=== PATIENT | female | born 1980 | race Caucasian/White ===

== ENCOUNTER → 2018-03-14 | Outpatient (REF) | payer OTHER, MEDICAID ==
[2018-03-14 20:12] LABS: CHOLESTEROL LEVEL 128 MG/DL (<200); CHOLESTEROL RISK RATIO 3.121 (<5); HDL CHOLESTEROL 41 MG/DL (>40); LDL CHOLESTEROL 76.6 MG/DL (<100); NON-HDL-C 87 MG/DL; TRIGLYCERIDES LEVEL 52 MG/DL (<150)
[2018-03-15 10:25] LABS: RUBELLA IgG QUALITATIVE IMMUNE (IMMUNE)
[2018-03-16 08:11] LABS: RUBEOLA IgG ANTIBODY 68.1 AU/mL (Immune >29.9)
[2018-03-16 08:11] LABS: MUMPS VIRUS IgG ANTIBODY <9.0 AU/mL (Immune >10.9)
== END ==
LOC: M LAB REF 19:20
DX: Z02.1 Encounter for pre-employment examination (principal); Z13.220 Encounter for screening for lipoid disorders
CPT/HCPCS: 86762

== ENCOUNTER → 2018-05-29 | Outpatient (REF) | payer OTHER, MEDICAID ==
[2018-06-01 14:40] LABS: HPV HYBRID CAPTURE II Negative (Negative)
== END ==
LOC: M SFHCWAGY 13:27
DX: Z01.419 Encounter for gynecological examination (general) (routine) without abnormal findings (principal); Z11.51 Encounter for screening for human papillomavirus (HPV)
CPT/HCPCS: 88142

== ENCOUNTER 2019-12-06 18:04 | Emergency (ER) | payer MEDICAID, OTHER ==
[~2019-12-06] VITALS: Ht 162.6 cm; Wt 64.2 kg
[~2019-12-06 18:04] MED LIST: MAPA500T17 PO; PRENTAB66 PO
[2019-12-06] MEDS ORDERED: IPRATROPIUM 0.5MG/ALBUTEROL 2.5MG INH SOL UD 3ML (DUONEB)(J7620) NEB ONE (20:15)
[2019-12-06 20:27] LABS: BASO # 0.1 10^3/uL (0.0-0.2); BASO % 1.2 % (0.0-1.0); EOS # 0.5 10^3/uL (0.0-0.5); EOS % 4.8 % (0.0-3.0); HEMATOCRIT 37.4 % (36.0-47.0); HEMOGLOBIN 12.3 g/dl (12.0-15.5); LYMPH # 3.5 10^3/uL (1.5-5.0); LYMPH % 34.4 % (24.0-44.0); MEAN CORPUSCULAR HEMOGLOBIN 30.5 pg (27.0-33.0); MEAN CORPUSCULAR HGB CONC 32.9 g/dl (32.0-36.5); MEAN CORPUSCULAR VOLUME 92.8 fl (80.0-96.0); MONO # 0.8 10^3/uL (0.0-0.8); MONO % 8.1 % (0.0-5.0); NEUTROPHILS # 5.1 10^3/uL (1.5-8.5); NEUTROPHILS % 51.2 % (36.0-66.0); PLATELET COUNT, AUTOMATED 363 10^3/uL (150-450); RED BLOOD COUNT 4.03 10^6/uL (4.00-5.40)
[2019-12-06] MEDS ORDERED: PROAAER10 INH (21:12)
[2019-12-06] MEDS ORDERED: ALBUTEROL 90 MCG/ACT 8GM HFA INHALER INH ONE (21:15)
[2019-12-06 21:17] VITALS: BP 134/71
--- NOTE | 2019-12-07 01:21 | REP ---
Clinical: Cough and dyspnea . Comparison: None . Technique: PA and lateral. Findings: The mediastinum and cardiac silhouette are normal. The lung graf are clear and without acute consolidation, effusion, or pneumothorax. The skeletal structures are intact and normal. Impression: 1. No acute cardiopulmonary process. Electronically Signed by Mario Miller MD 12/07/2019 01:13 A
== END 2019-12-06 21:24 | disposition home or self-care (01) ==
LOC: M ED 18:04
DX: R06.89 Other abnormalities of breathing (principal); R05 Cough; R20.0 Anesthesia of skin; F17.210 Nicotine dependence, cigarettes, uncomplicated

== ENCOUNTER → 2020-01-03 | Outpatient (REF) | payer OTHER, MEDICAID ==
[~2020-01-03] MED LIST changes: +PROAAER10 INH
[2020-01-03 17:51] LABS: BASO # 0.1 10^3/uL (0.0-0.2); EOS # 0.5 10^3/uL (0.0-0.5); HEMATOCRIT 38.2 % (36.0-47.0); HEMOGLOBIN 12.3 g/dl (12.0-15.5); LYMPH # 1.9 10^3/uL (1.5-5.0); LYMPH % 24.1 % (24.0-44.0); MEAN CORPUSCULAR HGB CONC 32.2 g/dl (32.0-36.5); MEAN CORPUSCULAR VOLUME 93.2 fl (80.0-96.0); MONO # 0.6 10^3/uL (0.0-0.8); MONO % 8.2 % (0.0-5.0); NEUTROPHILS # 4.6 10^3/uL (1.5-8.5); NEUTROPHILS % 60.3 % (36.0-66.0); PLATELET COUNT, AUTOMATED 371 10^3/uL (150-450); WHITE BLOOD COUNT 7.7 10^3/uL (4.0-10.0)
[2020-01-03 18:01] LABS: ALBUMIN 3.6 GM/DL (3.2-5.2); ALT/SGPT 18 U/L (12-78); BILIRUBIN,TOTAL 0.2 MG/DL (0.2-1.0); BLOOD UREA NITROGEN 12 MG/DL (7-18); CALCIUM LEVEL 8.7 MG/DL (8.5-10.1); CARBON DIOXIDE LEVEL 27 MEQ/L (21-32); CHLORIDE LEVEL 110 MEQ/L (98-107); CHOLESTEROL LEVEL 157 MG/DL (<200); CHOLESTEROL RISK RATIO 2.754 (<5); CREATININE FOR GFR 0.81 MG/DL (0.55-1.30); FREE T4 0.89 NG/DL (0.76-1.46); GLOMERULAR FILTRATION RATE > 60.0 (>58); GLUCOSE, FASTING 96 MG/DL (70-100); HDL CHOLESTEROL 57 MG/DL (>40); LDL CHOLESTEROL 88 MG/DL (<100); NON-HDL-C 100 MG/DL; POTASSIUM SERUM 4.6 MEQ/L (3.5-5.1); SODIUM LEVEL 140 MEQ/L (136-145); TOTAL PROTEIN 6.7 GM/DL (6.4-8.2); TRIGLYCERIDES LEVEL 58 MG/DL (<150)
[2020-01-03 18:02] LABS: TOTAL 25(OH) VITAMIN D 33.3 NG/ML (30.0-100.0)
[2020-01-03 18:08] LABS: HEMOGLOBIN A1c 5.2 %
== END ==
LOC: M LAB REF 16:41
PROVIDERS: ATTEND Nurse Practitioner Family
DX: R07.9 Chest pain, unspecified (principal); Z13.9 Encounter for screening, unspecified; G56.02 Carpal tunnel syndrome, left upper limb; M77.11 Lateral epicondylitis, right elbow; F17.200 Nicotine dependence, unspecified, uncomplicated; Z13.220 Encounter for screening for lipoid disorders

== ENCOUNTER → 2020-05-30 | Outpatient (CLI) | payer OTHER, MEDICAID | LOC: M LABSMTC 10:57 | PROVIDERS: ATTEND Orthopaedic Surgery | DX: Z11.59 Encounter for screening for other viral diseases (principal) ==

== ENCOUNTER → 2020-08-04 | Outpatient (CLI) | payer OTHER, MEDICAID ==
--- NOTE | 2020-08-15 07:37 | REP ---
LEFT RIB SERIES CLINICAL: Contusion. TECHNIQUE: Frontal view of the chest with four views of the left hemithorax. FINDINGS: Frontal view of the chest demonstrates no acute consolidation/contusion, effusion, or pneumothorax. Multiple views of the left hemithorax demonstrates no obvious acute rib fracture or pathology. IMPRESSION: No evidence for acute left rib fracture. MTDD
== END ==
LOC: M WUC 19:02
PROVIDERS: ATTEND Physician Assistant
DX: S20.222A Contusion of left back wall of thorax, initial encounter (principal); X58.XXXA Exposure to other specified factors, initial encounter; Y92.89 Other specified places as the place of occurrence of the external cause

== ENCOUNTER → 2022-02-03 | Outpatient (CLI) | payer OTHER | LOC: M WHC 13:56 | PROVIDERS: ATTEND Physician Assistant | DX: Z12.31 Encounter for screening mammogram for malignant neoplasm of breast (principal) ==

== ENCOUNTER 2023-01-17 05:28 | Inpatient (IN) | payer OTHER ==
[~2023-01-17] VITALS: Ht 162.6 cm; Wt 83.4 kg
[2023-01-17] MEDS ORDERED: VENL150C43 PO (06:03)
[2023-01-17] MEDS ORDERED: D3 S1CAP PO (06:03)
[2023-01-17] MEDS ORDERED: FAMO20TA5 PO (06:03)
[2023-01-17] MEDS ORDERED: LISI20TA33 PO (06:03)
[2023-01-17] MEDS ORDERED: ONDANSETRON 4MG 2ML VIAL IV ONE (06:05)
[2023-01-17] MEDS ORDERED: NS 1,000 ML IV ONE (06:05)
[2023-01-17 06:47] LABS: HEMATOCRIT 38.5 % (36.0-47.0); HEMOGLOBIN 12.9 g/dl (12.0-15.5); MEAN CORPUSCULAR HEMOGLOBIN 28.9 pg (27.0-33.0); MEAN CORPUSCULAR HGB CONC 33.5 g/dl (32.0-36.5); MEAN CORPUSCULAR VOLUME 86.3 fl (80.0-96.0); PLATELET COUNT, AUTOMATED 331 10^3/uL (150-450); RED BLOOD COUNT 4.46 10^6/uL (4.00-5.40); WHITE BLOOD COUNT 22.5 10^3/uL (4.0-10.0)
[2023-01-17 06:49] LABS: LIPASE 19 U/L (12-53)
[2023-01-17 06:54] LABS: ALBUMIN 2.8 G/DL (3.2-5.2); ALKALINE PHOSPHATASE 113 U/L (46-116); ALT/SGPT 38 U/L (7.0-40); AST/SGOT 29 U/L (<34); BILIRUBIN,TOTAL 0.3 MG/DL (0.3-1.2); BLOOD UREA NITROGEN 38 MG/DL (9-23); CALCIUM LEVEL 7.7 MG/DL (8.5-10.1); CARBON DIOXIDE LEVEL 21 MMOL/L (20-31); CHLORIDE LEVEL 93 MMOL/L (98-107); CREATININE FOR GFR 2.93 MG/DL (0.55-1.30); GLOMERULAR FILTRATION RATE 18.6 (>58); GLUCOSE, FASTING 140 MG/DL (60-100); POTASSIUM SERUM 3.2 MMOL/L (3.5-5.1); SODIUM LEVEL 127 MMOL/L (136-145)
[2023-01-17] MEDS ORDERED: NS 2,390 ML in IV 1 EA IV ONE (07:10)
[2023-01-17 07:13] LABS: RSV AMPLIFICATION NEGATIVE (NEGATIVE)
[2023-01-17] MEDS ORDERED: PIPERACILLIN/TAZOBACTAM SOD 4.5 GM in D5W MINI-BAG PLUS 50 ML IV ONE (07:20)
[2023-01-17 07:29] LABS: VENOUS BASE EXCESS -3.2 (-2.0-2.0); VENOUS HCO3 21.8 MEQ/L (23.0-27.0); VENOUS O2 SATURATION 78.9 % (60.0-80.0); VENOUS PARTIAL PRESSURE CO2 38.7 mmHg (38.0-50.0); VENOUS PARTIAL PRESSURE O2 44.1 mmHg (30.0-50.0); VENOUS PH 7.368 UNITS (7.330-7.430); VENOUS STANDARD HCO3 21.5 MEQ/L
[2023-01-17 07:35] LABS: INR 0.99; PROTHROMBIN TIME 13.3 SECONDS (12.5-14.5)
[2023-01-17 07:36] LABS: PARTIAL THROMBOPLASTIN TIME 34.5 SECONDS (24.8-34.2)
[2023-01-17 07:57] LABS: ANISOCYTOSIS 1+; ATYPICAL LYMPH 3 % (0-5); EOSINOPHILS 2 % (0-3); LYMPHOCYTES 2 % (16-44); MONOCYTES 15 % (0-5); NEUTROPHILS 74 % (28-66); PLATELET ESTIMATE NORMAL (NORMAL); POIKILOCYTOSIS 1+; POLYCHROMASIA 1+
[2023-01-17 08:00] LABS: AMYLASE 84 U/L (30-118)
[2023-01-17 08:01] LABS: CPK CREATINE PHOSPHOKINASE 35 U/L (34-145)
[2023-01-17 08:23] LABS: CK-MB VALUE MASS < 1.0 NG/ML (<3.6); MB/CK RELATIVE INDEX 2.85 (< OR =4)
[2023-01-17 09:16] LABS: TOTAL PROTEIN 6.7 G/DL (5.7-8.2)
[2023-01-17] MEDS ORDERED: TYLE650T38 PO (10:14)
[2023-01-17] MEDS ORDERED: IBUP200C25 PO (10:14)
[2023-01-17] MEDS ORDERED: HOME MED LIST COMPLETE! XX SCH (10:20)
[2023-01-17] MEDS: PANTOPRAZOLE 40MG TAB (PROTONIX) PO SCH (10:44)
[2023-01-17] MEDS ORDERED: ACETAMINOPHEN 650MG ER TAB (TYLENOL ARTHRITIS) PO PRN (11:00)
[2023-01-17] MEDS ORDERED: LORazepam 2 MG TAB PO PRN (11:00)
[2023-01-17] MEDS ORDERED: IBUPROFEN 200MG TAB PO PRN (11:00)
[2023-01-17] MEDS: ACETAMINOPHEN TAB 650MG DOSE (2X325MG) PO PRN ×2 (12:04→18:33)
[2023-01-17] MEDS: MORPHINE 2 MG/ML 1ML VIAL IV PRN ×2 (12:04→21:10)
[2023-01-17] MEDS: NS 1,000 ML IV SCH ×2 (12:29→21:00)
[2023-01-17] MEDS ORDERED: ONDANSETRON 4MG TAB PO PRN (13:15)
[2023-01-17] MEDS: cefTRIAXone SOD 2 GM in D5W MINI-BAG PLUS 50 ML IV SCH (14:11)
[2023-01-17 14:26] VITALS: BP 107/58
[2023-01-17] MEDS: HEPARIN SOD (PORCINE) 5000UNITS/ML 1ML VIAL/SYRINGE SC SCH ×2 (15:14→21:00)
[2023-01-17] MEDS: THIAMINE 100 MG TAB PO SCH ×2 (15:15→21:00)
[2023-01-17] MEDS: FOLIC ACID 1MG TAB PO SCH (15:15)
[2023-01-17] MEDS: MULTIVITAMINS/MINERALS THERAP 1 TAB PO SCH (15:15)
[2023-01-17] MEDS: VENLAFAXINE **XR** 75MG CAPSULE PO SCH (15:15)
[2023-01-17 15:54] VITALS: BP 106/62
[2023-01-17 16:00] VITALS: BP 106/62
[2023-01-17 16:38] LABS: CALCIUM LEVEL 6.1 MG/DL (8.5-10.1); CREATININE FOR GFR 2.15 MG/DL (0.55-1.30); GLOMERULAR FILTRATION RATE 26.6 (>58); POTASSIUM SERUM 3.4 MMOL/L (3.5-5.1)
[2023-01-17] MEDS: KCL 10MEQ/100ML SWI (KRUN) 10 MEQ in IV 1 EA IV SCH ×2 (18:24→19:45)
[2023-01-17 20:00] VITALS: BP 110/57
[2023-01-18] VITALS: BP 125/70
[2023-01-18 01:24] LABS: CALCIUM LEVEL 6.8 MG/DL (8.5-10.1); CREATININE FOR GFR 1.74 MG/DL (0.55-1.30); POTASSIUM SERUM 3.4 MMOL/L (3.5-5.1)
[2023-01-18] MEDS: NS 1,000 ML IV SCH ×3 (01:51→18:20)
[2023-01-18 04:00] VITALS: BP 136/79
[2023-01-18] MEDS: HEPARIN SOD (PORCINE) 5000UNITS/ML 1ML VIAL/SYRINGE SC SCH ×3 (05:05→20:48)
[2023-01-18 05:50] LABS: HEMATOCRIT 30.2 % (36.0-47.0); MEAN CORPUSCULAR HEMOGLOBIN 28.6 pg (27.0-33.0); MEAN CORPUSCULAR HGB CONC 32.8 g/dl (32.0-36.5); MEAN CORPUSCULAR VOLUME 87.3 fl (80.0-96.0); PLATELET COUNT, AUTOMATED 296 10^3/uL (150-450); RED BLOOD COUNT 3.46 10^6/uL (4.00-5.40); WHITE BLOOD COUNT 17.3 10^3/uL (4.0-10.0)
[2023-01-18 05:56] LABS: HEMOGLOBIN 9.9 g/dl (12.0-15.5)
[2023-01-18 06:19] LABS: ALKALINE PHOSPHATASE 97 U/L (46-116); ALT/SGPT 25 U/L (7.0-40); AST/SGOT 24 U/L (<34); BILIRUBIN,TOTAL < 0.2 MG/DL (0.3-1.2); BLOOD UREA NITROGEN 25 MG/DL (9-23); CALCIUM LEVEL 6.5 MG/DL (8.5-10.1); CARBON DIOXIDE LEVEL 20 MMOL/L (20-31); CHLORIDE LEVEL 103 MMOL/L (98-107); CREATININE FOR GFR 1.55 MG/DL (0.55-1.30); GLOMERULAR FILTRATION RATE 38.8 (>58); GLUCOSE, FASTING 141 MG/DL (60-100); POTASSIUM SERUM 3.4 MMOL/L (3.5-5.1); SODIUM LEVEL 135 MMOL/L (136-145); TOTAL PROTEIN 5.1 G/DL (5.7-8.2)
[2023-01-18] MEDS: MORPHINE 2 MG/ML 1ML VIAL IV PRN ×3 (06:59→20:54)
[2023-01-18 08:18] VITALS: BP 129/76
[2023-01-18] MEDS ORDERED: FAMOTIDINE 20 MG TAB PO SCH (09:00)
[2023-01-18] MEDS: THIAMINE 100 MG TAB PO SCH ×2 (09:11→20:48)
[2023-01-18] MEDS: PANTOPRAZOLE 40MG TAB (PROTONIX) PO SCH (09:11)
[2023-01-18] MEDS: ACETAMINOPHEN TAB 650MG DOSE (2X325MG) PO PRN (09:11)
[2023-01-18] MEDS: POTASSIUM CHLORIDE 10MEQ SR TABLET PO SCH ×2 (09:11→20:48)
[2023-01-18] MEDS: MULTIVITAMINS/MINERALS THERAP 1 TAB PO SCH (09:11)
[2023-01-18] MEDS: FOLIC ACID 1MG TAB PO SCH (09:11)
[2023-01-18] MEDS: VENLAFAXINE **XR** 75MG CAPSULE PO SCH (09:12)
[2023-01-18] MEDS: FIORICET TAB PO PRN ×2 (10:41→15:13)
[2023-01-18] MEDS: cefTRIAXone SOD 2 GM in D5W MINI-BAG PLUS 50 ML IV SCH (14:24)
[2023-01-18 15:35] VITALS: BP 130/84
[2023-01-18 16:08] LABS: CALCIUM LEVEL 7.1 MG/DL (8.5-10.1); CREATININE FOR GFR 1.4 MG/DL (0.55-1.30); GLOMERULAR FILTRATION RATE 43.7 (>58); POTASSIUM SERUM 3.8 MMOL/L (3.5-5.1)
[2023-01-18 20:00] VITALS: BP 145/86
[2023-01-18 23:15] LABS: CALCIUM LEVEL 7.1 MG/DL (8.5-10.1); CREATININE FOR GFR 1.29 MG/DL (0.55-1.30); POTASSIUM SERUM 3.9 MMOL/L (3.5-5.1)
[2023-01-19] VITALS: BP 165/85
[2023-01-19 04:00] VITALS: BP 150/87
[2023-01-19] MEDS: HEPARIN SOD (PORCINE) 5000UNITS/ML 1ML VIAL/SYRINGE SC SCH ×2 (05:05→14:00)
[2023-01-19] MEDS: NS 1,000 ML IV SCH (05:06)
[2023-01-19 05:27] LABS: HEMATOCRIT 29.4 % (36.0-47.0); HEMOGLOBIN 9.6 g/dl (12.0-15.5); MEAN CORPUSCULAR HEMOGLOBIN 28.3 pg (27.0-33.0); MEAN CORPUSCULAR HGB CONC 32.7 g/dl (32.0-36.5); MEAN CORPUSCULAR VOLUME 86.7 fl (80.0-96.0); PLATELET COUNT, AUTOMATED 308 10^3/uL (150-450); RED BLOOD COUNT 3.39 10^6/uL (4.00-5.40); WHITE BLOOD COUNT 15.9 10^3/uL (4.0-10.0)
[2023-01-19 05:57] LABS: ALBUMIN 1.9 G/DL (3.2-5.2); ALKALINE PHOSPHATASE 111 U/L (46-116); ALT/SGPT 28 U/L (7.0-40); AST/SGOT 28 U/L (<34); BILIRUBIN,TOTAL < 0.2 MG/DL (0.3-1.2); BLOOD UREA NITROGEN 16 MG/DL (9-23); CALCIUM LEVEL 7.2 MG/DL (8.5-10.1); CARBON DIOXIDE LEVEL 21 MMOL/L (20-31); CHLORIDE LEVEL 105 MMOL/L (98-107); CREATININE FOR GFR 1.23 MG/DL (0.55-1.30); GLOMERULAR FILTRATION RATE 50.7 (>58); GLUCOSE, FASTING 103 MG/DL (60-100); POTASSIUM SERUM 4.2 MMOL/L (3.5-5.1); SODIUM LEVEL 135 MMOL/L (136-145); TOTAL PROTEIN 5.2 G/DL (5.7-8.2)
[2023-01-19 07:52] VITALS: BP 150/82
[2023-01-19] MEDS: MULTIVITAMINS/MINERALS THERAP 1 TAB PO SCH (08:01)
[2023-01-19] MEDS: MORPHINE 2 MG/ML 1ML VIAL IV PRN (08:01)
[2023-01-19] MEDS: POTASSIUM CHLORIDE 10MEQ SR TABLET PO SCH (08:01)
[2023-01-19] MEDS: VENLAFAXINE **XR** 75MG CAPSULE PO SCH (08:01)
[2023-01-19] MEDS: THIAMINE 100 MG TAB PO SCH (08:02)
[2023-01-19] MEDS: FOLIC ACID 1MG TAB PO SCH (08:02)
[2023-01-19] MEDS: PANTOPRAZOLE 40MG TAB (PROTONIX) PO SCH (08:02)
[2023-01-19] MEDS ORDERED: PERCOCET 5MG/325MG TAB PO PRN (08:20)
[2023-01-19] MEDS ORDERED: AMLO1TAB24 PO (10:42)
[2023-01-19] MEDS ORDERED: PERCOCET PO ×2 (10:42→10:48)
[2023-01-19] MEDS ORDERED: amLODIPine 5 MG TAB PO ONE (10:50)
[2023-01-19] MEDS ORDERED: LEVO1TAB40 PO (11:08)
[2023-01-19 12:03] VITALS: BP 156/76
[2023-01-19 12:30] VITALS: BP 156/76
[2023-01-19] MEDS: cefTRIAXone SOD 2 GM in D5W MINI-BAG PLUS 50 ML IV SCH (13:12)
[2023-01-19 14:52] VITALS: BP 138/68
== END 2023-01-19 15:57 | disposition home or self-care (01) | DRG 720 ==
LOC: M ED 05:28 → M ED INP 10:24 → ENRESERV 11:32 → M PCU 14:20
PROVIDERS: ADMIT Internal Medicine; ATTEND Internal Medicine
DX: A41.51 Sepsis due to Escherichia coli [E. coli] (principal); B96.20 Unspecified Escherichia coli [E. coli] as the cause of diseases classified elsewhere; I10 Essential (primary) hypertension; F41.8 Other specified anxiety disorders; K21.9 Gastro-esophageal reflux disease without esophagitis; F17.210 Nicotine dependence, cigarettes, uncomplicated; N10 Acute pyelonephritis; N17.9 Acute kidney failure, unspecified; E87.1 Hypo-osmolality and hyponatremia; Z20.822 Contact with and (suspected) exposure to COVID-19; Z79.899 Other long term (current) drug therapy; F10.10 Alcohol abuse, uncomplicated

== ENCOUNTER → 2024-10-04 | Outpatient (REF) | payer OTHER ==
[~2024-10-04] MED LIST changes: +AMLO1TAB24 PO; +D3 S1CAP PO; +FAMO20TA5 PO; +IBUP200C25 PO; +LEVO1TAB40 PO; +LISI20TA33 PO; +PERCOCET PO; +TYLE650T38 PO; +VENL150C43 PO
== END ==
LOC: M LAB REF 17:09
PROVIDERS: ATTEND Physician Assistant
DX: Z12.4 Encounter for screening for malignant neoplasm of cervix (principal); Z11.3 Encounter for screening for infections with a predominantly sexual mode of transmission; Z01.419 Encounter for gynecological examination (general) (routine) without abnormal findings